=== PATIENT | female | born 1935 | race Caucasian/White ===

== ENCOUNTER 2018-04-23 23:35 | Emergency (ER) | payer OTHER ==
[~2018-04-23] VITALS: Ht 157.5 cm; Wt 63.6 kg
[2018-04-23 23:40] VITALS: Ht 157.5 cm; Wt 63.6 kg
--- NOTE | 2018-04-23 23:41 | ERD ---
ER Documentation Chief Complaint Chief Complaint AP/FEVER HPI The patient is a 82-year-old female, presenting to the ER because of abdominal pain, vomiting, fever for the last 4 days. Denies facial pain, cough, neck pain, chest pain, dyspnea, vomiting, dysuria. She complains of constipation. She does not smoke nor drink Past medical history: Osteoporosis, dyslipidemia Past surgical history: Sinusitis surgery, appendectomy ROS All systems reviewed and are negative except as per history of present illness. Allergies Allergies: Coded Allergies: Penicillins (Verified Allergy, Unknown, 04/23/18) Physical Exam Vitals Vital Signs Date Temp Pulse Resp B/P (MAP) Pulse Ox O2 O2 Flow FiO2 Time Delivery Rate 04/24/18 98.4 01:54 04/24/18 98.3 84 16 117/61 95 Room Air 01:47 (79) 04/24/18 Nasal 2 00:45 Cannula 04/24/18 101 16 126/75 96 Room Air 00:19 (92) 04/23/18 102.5 99 18 118/57 92 23:40 (77) Physical Exam Const: No acute distress. Head: Atraumatic. Eyes: Normal Conjunctiva. ENT: Normal External Ears, Nose and Mouth. Neck: Full range of motion. No meningismus. Resp: Clear to auscultation bilaterally. Cardio: Regular rate and rhythm. Abd: Soft, non distended, normal bowel sounds, vague and diffuse abdominal tenderness, no rigidity/rebound/CVA tenderness Skin: No petechiae or rashes. Back: No midline or flank tenderness. Ext: No cyanosis, or edema. Neur: Awake and alert. No focal deficit Psych: Normal Mood and Affect. Result Diagram: 04/24/18 0005 04/24/18 0005 Results 24 hrs Laboratory Tests Test 04/23/18 23:53 04/24/18 00:05 04/24/18 01:30 04/24/18 01:37 POC Venous Lactate 2.6 mmol/L White Blood Count 8.7 10^3/ul Red Blood Count 4.17 10^6/ul Hemoglobin 12.6 g/dl Hematocrit 37.6 % Mean Corpuscular 90.2 fl Volume Mean Corpuscular 30.2 pg Hemoglobin Mean Corpuscular 33.5 g/dl Hemoglobin Concent Red Cell 13.2 % Distribution Width Platelet Count 203 10^3/UL Mean Platelet 11.3 fl Volume Immature 0.300 % Granulocytes % Neutrophils % 85.1 % Lymphocytes % 9.2 % Monocytes % 5.0 % Eosinophils % 0.2 % Basophils % 0.2 % Nucleated Red Blood 0.0 /100WBC Cells % Immature 0.030 10^3/ul Granulocytes # Neutrophils # 7.4 10^3/ul Lymphocytes # 0.8 10^3/ul Monocytes # 0.4 10^3/ul Eosinophils # 0.0 10^3/ul Basophils # 0.0 10^3/ul Nucleated Red Blood 0.0 10^3/ul Cells # Prothrombin Time 12.5 Sec Prothrombin Time 1.0 Ratio INR International 0.92 Normalized Ratio Activated 22.6 Sec Partial Thromboplas t Time Sodium Level 139 mmol/L Potassium Level 3.7 mmol/L Chloride Level 100 mmol/L Carbon Dioxide 29 mmol/L Level Anion Gap 10 Blood Urea Nitrogen 9 mg/dl Creatinine 0.78 mg/dl Est Glomerular mL/min Filtrat Rate mL/min Glucose Level 137 mg/dl Calcium Level 9.1 mg/dl Total Bilirubin 0.7 mg/dl Direct Bilirubin 0.10 mg/dl Indirect Bilirubin 0.6 mg/dl Aspartate Amino 1469 IU/L Transf (AST/SGOT) Alanine 634 IU/L Aminotransferase (A LT/SGPT) Alkaline 177 IU/L Phosphatase Troponin I < 0.012 ng/ml Total Protein 6.5 g/dl Albumin 3.8 g/dl Globulin 2.70 g/dl Albumin/Globulin 1.40 Ratio Urine Color YELLOW Urine Clarity CLEAR Urine pH 8.0 Urine Specific 1.008 Kingsley Urine Ketones NEGATIVE mg/dL Urine Nitrite NEGATIVE mg/dL Urine Bilirubin NEGATIVE mg/dL Urine Urobilinogen 1+ mg/dL Urine Leukocyte NEGATIVE Spencer/ul Esterase Urine Hemoglobin NEGATIVE mg/dL Urine Glucose NEGATIVE mg/dL Urine Total Protein NEGATIVE mg/dl Bedside Urine pH 7.5 (LAB) Bedside Urine Negative Protein (LAB) Bedside Urine Negative Glucose (UA) Bedside Urine Negative Ketones (LAB) Bedside Urine Blood Negative Bedside Urine Negative Nitrite (LAB) Bedside Urine Negative Leukocyte Esterase (L Test 04/24/18 01:55 POC Venous Lactate 1.2 mmol/L Current Medications Medications Dose Sig/Arabella Start Time Status Last (Trade) Ordered Route PRN Stop Time Admin Dose Reason Admin 650 mg ONCE STAT 04/23/18 DC 04/24/18 Acetaminophen PO 23:42 04/23/18 00:01 (Tylenol 23:43 Tab) Sodium 1,910 ml @ BOLUS X1 04/24/18 DC 04/24/18 Chloride 955 mls/hr ONCE IV 00:00 04/24/18 00:07 01:59 50 ml @ ONCE STAT 04/24/18 DC 04/24/18 Meropenem/Sod 100 mls/hr IVPB 00:00 04/24/18 00:26 ium Chloride 00:29 Procedures/MDM [place] [address] Radiology Main Line: [phone] DIAGNOSTIC IMAGING REPORT Patient: JANUARY CHRISTIANSON : 1935 Age: 82 Sex: F MR #: [id number] DOS: 04/24/18 0002 Ordering MD: MASON COWAN MD Location: E/R Room/Bed: PROCEDURE: CT abdomen and pelvis without contrast. CLINICAL INDICATION: 82-year-old female. Abdominal pain. TECHNIQUE: CT scan of the abdomen and pelvis without contrast was performed on a multi-slice CT scanner utilizing axial imaging from the lung bases through the pubis symphysis. One or more the following does reduction techniques were utilized: Automated exposure control, adjustment of the mA/ or kV according to patient's size, or use of iterative reconstruction technique. Sagittal and coronal reformatted images were made. DICOM images are available for review. The CTDIvol is 8.5 a mGy and the DLP is 467.82 mGycm. COMPARISON: None. FINDINGS: CT abdomen Visualized lung bases: Clear. No significant pleural or pericardial effusion. Liver: Limited evaluation without IV contrast. No gross lesion. Gallbladder and bile ducts: No calcified gallstones or pericholecystic fluid. No biliary ductal dilatation. Spleen: Normal appearance. Pancreas: Normal appearance. No ductal dilatation. No mass. No peripancreatic stranding. Adrenal glands: Normal appearance. Kidneys: No hydronephrosis or renal stones. Vasculature: No abdominal aortic aneurysm. Calcified plaque present. Negative IVC. Lymph nodes: No adenopathy. GI: Small hiatal hernia. No evidence of obstruction or bowel wall thickening. Peritoneal cavity: No free fluid or free air. CT pelvis GI: Negative terminal ileum. The appendix is not identified. Minimal sigmoid diverticulosis. Negative rectum. : Normal appearing distal ureters and urinary bladder. Negative uterus. No adnexal mass. Peritoneal cavity: No free fluid or loculated fluid collections. Lymph nodes: No adenopathy. Osseous structures: No lytic or blastic lesions. Grade 1 L4-5 spondylolisthesis due to facet arthrosis. L4-5 and L5-S1 disc degeneration with vacuum phenomenon. L5-S1 discogenic sclerosis. Transitional S1 segment. IMPRESSION: 1. Small hiatal hernia. 2. Minimal sigmoid diverticulosis. 3. L4-5 and L5-S1 disc degeneration. 4. Grade 1 L4-5 spondylolisthesis due to facet arthrosis. RPTAT: RS Physician Simone Date Time Electronically viewed and signed by Physician Simone on 04/24/2018 01:22 RS/ CC: MASON COWAN MD [id number] [place] [address] Radiology Main Line: [phone] DIAGNOSTIC IMAGING REPORT Patient: JANUARY CHRISTIANSON : 1935 Age: 82 Sex: F MR #: [id number] DOS: 04/23/18 2342 Ordering MD: MASON COWAN MD Location: E/R Room/Bed: PROCEDURE: DX Chest 1 View CLINICAL INDICATION: Possible sepsis. TECHNIQUE: AP Portable chest. COMPARISON: None FINDINGS: Normal cardiac and mediastinal configuration. Aortic calcified plaque present. No CHF or hilar enlargement. Lungs are clear. IMPRESSION: No acute disease. RPTAT: RS Physician Siomne Date Time Electronically viewed and signed by Physician Simone on 04/24/2018 01:18 RS/ CC: MASON COWAN MD [id number] EKG: Read by emergency physician Rate/Rhythm: Normal Sinus Rhythm 90 beats/min QRS, ST, T-waves: No ST elevation, no T inversion, low voltage Impression: Abnormal EKG MEDICAL MAKING DECISION: The patient is a 82-year-old female, presenting with acute severe sepsis, was treated with Tylenol 650 mg p.o. for fever, normosaline 30 mm/kg IV, meropenem IV for acute severe sepsis The differential diagnoses considered include but are not limited to pneumonia, UTI, pyelonephritis MDM: Patient's infectious symptoms have not stabilized and the patient is at risk of rapid decompensation. The patient will be admitted for careful hydration, antibiotic therapy, and infectious source control. SEVERE SEPSIS CRITERIA: Infectious source: unknown End organ damage indicated by: [Lactate > 2.0 mmol/L SEPSIS MANAGEMENT Time of recognition of severe sepsis:12 am 3 HOUR BUNDLE Blood cultures x 2 before broad-spectrum antibiotics: [Yes] 30 ml/kg NS bolus [Completed] Initial lactate []2.6 Repeat lactate Pending SEPTIC SHOCK ASSESSMENT: [No] lactic acid > 4.0 [No] Persistent hypotension (SBP < 90 or 40 mmHg drop, MAP < 65) despite 30 mL/kg IV fluid bolus CRITICAL CARE Critical care time [35] minutes Emergent fluid management while maintaining close respiratory support. Provision of immediate and broad-spectrum antibiotic therapy. Simultaneous assessment for possible sources in order to direct targeted therapy. Consideration for invasive and chemical support to prevent cardiopulmonary collapse. Critical care time is independent of procedures performed. Departure Diagnosis: Primary Impression: Severe sepsis Condition: Stable Comments I discussed the findings with the patient. I discussed the patient with the [facility] physician Dr. Dennis at 2 AM. who was made aware of the lab, the treatment, the patient condition. The patient is transferred via ambulance Disclaimer: Inadvertent spelling and grammatical errors are likely due to EHR/dictation software use and do not reflect on the overall quality of patient care. Also, please note that the electronic time recorded on this note does not necessarily reflect the actual time of the patient encounter. MASON COWAN MD Apr 23, 2018 23:41
[2018-04-23] MEDS ORDERED: ACETAMINOPHEN 325 MG TAB PO STA (23:42)
[2018-04-24] MEDS ORDERED: MEROPENEM 1 GM/50ML(PMX) 50 ML IVPB STA
[2018-04-24] MEDS ORDERED: SOD CHLORIDE 0.9% 1,910 ML IV ONE
[2018-04-24] MEDS ORDERED: ATOR20TA38 PO (02:48)
[2018-04-24] MEDS ORDERED: ALEN70TA5 PO (02:48)
[2018-04-24 03:29] VITALS: BP 104/60; PULSE 74; RESP 16
== END 2018-04-24 04:03 | disposition short-term general hospital (02) ==
LOC: E/R 23:35
DX: A41.9 Sepsis, unspecified organism (principal); R65.20 Severe sepsis without septic shock; R40.2142 Coma scale, eyes open, spontaneous, at arrival to emergency department; R40.2252 Coma scale, best verbal response, oriented, at arrival to emergency department; R40.2362 Coma scale, best motor response, obeys commands, at arrival to emergency department
CPT/HCPCS: 36415; 71045; 74176; 80053; 81003; 83605; 84484; 85025; 85610; 85730; 87040; 87086; 87400; 93005; 96365; 99291; J2185; J7030